=== PATIENT | male | born 1990 | race Caucasian/White ===

== ENCOUNTER 2018-04-27 03:02 | Emergency (ER) | payer OTHER | END 2018-04-27 05:22 | disposition home or self-care (01) | LOC: FTE 03:02 | DX: S80.861A Insect bite (nonvenomous), right lower leg, initial encounter (principal); S80.862A Insect bite (nonvenomous), left lower leg, initial encounter; S40.861A Insect bite (nonvenomous) of right upper arm, initial encounter; S40.862A Insect bite (nonvenomous) of left upper arm, initial encounter; L08.9 Local infection of the skin and subcutaneous tissue, unspecified; F17.210 Nicotine dependence, cigarettes, uncomplicated; W57.XXXA Bitten or stung by nonvenomous insect and other nonvenomous arthropods, initial encounter; Y92.9 Unspecified place or not applicable | CPT/HCPCS: 99283; Z7502 ==